=== PATIENT | female | born 1965 | race Caucasian/White ===

== ENCOUNTER 2020-06-26 08:52 | Outpatient (CLI) | payer OTHER, SELFPAY | END 2020-06-26 08:53 | disposition home or self-care (01) | LOC: ANHSURGERY 08:55 | PROVIDERS: PCP Family Medicine; Visit Provider Obstetrics & Gynecology Gynecology | DX: N95.0 Postmenopausal bleeding (principal) | CPT/HCPCS: 36415; 86850; 86900; 86901 ==

== ENCOUNTER 2020-06-30 01:22 | Outpatient (CLI) | payer OTHER, SELFPAY ==
[2020-06-30 16:30] LABS: SARS-CoV-2 RNA PCR Negative
== END 2020-06-30 01:23 | disposition home or self-care (01) ==
LOC: ANHCOVIDDT 01:23
PROVIDERS: PCP Family Medicine; Visit Provider Obstetrics & Gynecology Gynecology
DX: Z01.812 Encounter for preprocedural laboratory examination (principal); Z20.828 Contact with and (suspected) exposure to other viral communicable diseases
CPT/HCPCS: 87635; C9803; U0003

== ENCOUNTER 2020-07-03 02:23 | Day surgery (SDC) | payer OTHER, SELFPAY ==
[2020-06-19 11:08] VITALS: BMI 26.6
[2020-07-03] VITALS (28 sets, daily range): BP systolic 102–122; BP diastolic 61–79; PULSE 35–126; RESP 12–20; TEMP 36.2–37.2; O2SAT 93–100
--- NOTE | 2020-07-03 | ECG_ITS ---
Measurements Intervals [place] Rate: 75 P: 75 [place]: 180 QRS: 66 QRSD: 97 T: 61 QT: 382 QTc: 428 Interpretive Statements SINUS RHYTHM WITH MARKED SINUS ARRHYTHMIA POSSIBLE LEFT ATRIAL ENLARGEMENT INCOMPLETE RIGHT BUNDLE BRANCH BLOCK BORDERLINE ECG Electronically Signed On 07-03-2020 19:01:55 CDT by Hima Spears D.O.
--- NOTE | 2020-07-03 07:48 | P.HP_ITS ---
H&P: HPI History of Present Illness Date/Time: 07/03/20 07:48 Chief complaint: Post Menopausal Bleeding Narrative: Zita Orozco is a 54 year old female with postmenopausal bleeding. Patient had hysteroscopy with EMB that showed proliferative endometrium. Patient unable to use hormones due to history of breast cancer. Options were reviewed and patient has decided to proceed with hysterectomy. In addition, she would like to have BSO due to history of breast cancer. Reviewed route of procedure with prior csection and prior and plan laparoscopy to evaluate the pelvis. If appropriate, will proceed with TVH-BSO but if needed with use laparoscopic assistance. Risks of infection, bleeding, injury to internal organs, DVT, and general anesthesia discussed. Post of expectations reviewed. Patient questions answered and she agrees to proceed. [facility] Past Medical History Medical History (Updated 07/03/20 @ 08:15 by Naima Bowen MD) Body mass index (bmi) 25.0-25.9, adult (12/11/16) Bunion of great toe of left foot (~1996) delivery delivered Encounter for preventive measure History of breast cancer in female (~2012) Insomnia Malignant neoplasm of unspecified site of unspecified female breast (~2012) (normal spontaneous vaginal delivery) Postmenopausal vaginal bleeding Postmenopause atrophic vaginitis (~2014) Seasonal allergies Status post hysteroscopy Urge incontinence (~2018) Vitamin D deficiency, unspecified (~2015) Surgical History Surgical History History of lumpectomy of left breast (~2012) Social History Social History Smoking status: Never smoker Alcohol intake: current Drinks per week: 2 Spiritual care concerns: No Meds Home Medications and Allergies Home Medications Medication Instructions Recorded Confirmed Type cholecalciferol (vitamin D3) 125 5,000 unit PO DAILY 08/12/19 06/19/20 History mcg (5,000 unit) capsule hydroxyzine HCl 10 mg tablet 10 mg PO .bedtime PRN #90 tablet 12/13/19 06/19/20 Rx calcium carbonate 500 mg calcium 500 mg PO DAILY 01/06/20 06/19/20 History (1,250 mg) tablet loratadine 10 mg tablet 10 mg PO DAILY 01/06/20 06/19/20 History bupropion HCl 150 mg 24 hr tablet, 150 mg PO BID #180 tablet 06/01/20 06/19/20 Rx extended release multivitamin 1 tablet PO DAILY 06/19/20 06/19/20 History Allergies Allergy/AdvReac Type Severity Reaction Status Date / Time No Known Allergies Allergy Verified 06/19/20 11:10 Exam Const: General: no acute distress Resp: Auscultation: clear to auscultation bilaterally Cardio: Rate: regular rate Rhythm: regular rhythm : External Female Exam: normal external appearance Speculum Exam - Vagina: normal appearance of the vagina Speculum Exam - Cervix: normal appearance of the cervix Bimanual exam- vagina & uterus: normal bimanual exam Bimanual Exam- Adnexa, other: normal adnexae Assessment and Plan Assessment and plan (1) Postmenopausal vaginal bleeding: Code(s): N95.0 - Postmenopausal bleeding Status: Acute Assessment and Plan: with proliferative endometrium Plan to proceed with hysterectomy Plan laparoscopic assisted vaginal hysterectomy with BSO
--- NOTE | 2020-07-03 07:48 | WPDHPUPDATE1 ---
History and Physical Update Update Date/Time: 07/03/20 07:48 History and Physical has been reviewed, including an updated exam of the patient. There are NO changes in the patient's condition. Risks, benefits, and alternatives have been discussed and questions answered. Patient agrees to proceed with procedure.
--- NOTE | 2020-07-03 08:04 | P.PNAN_ITS ---
Anes - Initial Pre Proc Eval Procedure: Operation Date: 07/03/20 10:00 Proposed Procedures p Laparoscopic Assisted Vaginal Hysterectomy With Bilateral Salpingo- Oophorectomy - Naima Bowen MD Date/Time: 07/03/20 08:04 Surgeon: Naima Bowen MD Pre Op Diagnosis: Post Menopausal Bleeding Patient Data Age: 54 Gender: F Height: 1.7 m Weight: 77.11 kg Allergies Allergy/AdvReac Type Severity Reaction Status Date / Time No Known Allergies Allergy Verified 06/19/20 11:10 Home Medications Medication Instructions Recorded Confirmed Type cholecalciferol (vitamin D3) 125 5,000 unit PO DAILY 08/12/19 07/03/20 History mcg (5,000 unit) capsule hydroxyzine HCl 10 mg tablet 10 mg PO .bedtime PRN #90 tablet 12/13/19 07/03/20 Rx calcium carbonate 500 mg calcium 500 mg PO DAILY 01/06/20 07/03/20 History (1,250 mg) tablet loratadine 10 mg tablet 10 mg PO DAILY 01/06/20 07/03/20 History bupropion HCl 150 mg 24 hr tablet, 150 mg PO BID #180 tablet 06/01/20 07/03/20 Rx extended release multivitamin 1 tablet PO DAILY 06/19/20 07/03/20 History Patient hx anesthesia problems: none Family hx anesthesia problems: none PMFSH Past Medical History Medical History (Updated 07/03/20 @ 08:15 by Naima Bowen MD) Body mass index (bmi) 25.0-25.9, adult (12/11/16) Bunion of great toe of left foot (~1996) delivery delivered Encounter for preventive measure History of breast cancer in female (~2012) Insomnia Malignant neoplasm of unspecified site of unspecified female breast (~2012) (normal spontaneous vaginal delivery) Postmenopausal vaginal bleeding Postmenopause atrophic vaginitis (~2014) Seasonal allergies Status post hysteroscopy Urge incontinence (~2018) Vitamin D deficiency, unspecified (~2015) Surgical History Surgical History History of lumpectomy of left breast (~2012) Social History Social History Smoking status: Never smoker Alcohol intake: current Drinks per week: 2 Spiritual care concerns: No Anes - Eval Final PreProcedure Day of Procedure 07/03/20 08:04 Patient weight: overweight Heart: regular rate and rhythm Lungs: clear to auscultation and normal air movement Airway: Mallampati scale class II Neurological: alert and oriented Last oral intake: >/= 8 hours ASA classification: II Emergent: no Anesthetic plan: proceed Anesthesia type and monitoring: general ETT and standard monitoring Informed Consent: The patient's anesthetic plan and its attendant risks and benefits were discussed with the patient/family/POA. Questions were solicited and answers provided to the satisfaction of the patient/family/POA.
[2020-07-03] MEDS: ACETAMINOPHEN 500 MG TABLET 1000 MG PO (09:07)
[2020-07-03] MEDS: LACTATED RINGERS 1,000 ML 30 ML IV CONT ×2 (09:30→12:17)
[2020-07-03] MEDS: KETOROLAC 15 MG/ML VIAL (*BKC) IV PUSH (09:37)
[2020-07-03] MEDS: ceFAZolin 2 GM/D5W 50 ML 2 GM/50 ML BAG IVPB (10:11)
[2020-07-03] MEDS: LIDO 1%/EPINEPHRINE 1:100,000 20 ML VIAL INFILTRATE (10:49)
--- NOTE | 2020-07-03 12:05 | PM.PROC ---
Procedure Note - Detailed Date of procedure: 07/03/20 Pre-op diagnosis: Post Menopausal Bleeding Post-op diagnosis: same Procedure performed: LAVH-BSO Description of procedure: The patient is taken to the operating room and placed under general anesthesia in the dorsal lithotomy position. Oliveira catheter is placed. Randlett speculum was placed in the vagina cervix is grasped on the anterior lip with a tenaculum and an acorn manipulator is placed. Attention is then turned to the abdomen where a vertical skin incision is made at the base of the umbilicus. The abdomen is tented and the Veress needle is placed. Opening patient pressure was 6mmHg and water drop test is normal. Pneumoperitoneum is obtained to a patient pressure of 15. Veress needle is removed and a 5mm optic view trocar was placed and intra-abdominal placement is confirmed with the laparoscope. 5mm trocar is placed 2cm above the symphysis pubis under direct visualization. The blunt probe was used to investigate the pelvis and the right tube is noted to be adherent to the pelvic sidewall using blunt dissection and Mersilene scissors the tube was dissected off the sidewall. Attention is then turned to the the vagina, the acorn manipulator is removed the short weighted speculum is placed the Filipe retractors placed anteriorly. The vaginal mucosa surrounding the cervix was injected with 1% lidocaine with epinephrine. The scalpel was then used to incise the vaginal mucosa circumferentially around the cervix. The vaginal mucosa was dissected off anteriorly and the peritoneum entered the Filipe retractors replaced. The posterior vaginal mucosa was dissected off using sharp and blunt dissection and the peritoneum entered. The long weighted speculum is placed intraperitoneally. The uterosacral and cardinal ligaments were serially clamped, transected, and suture ligated with 0 Vicryl. These were tagged for future use. The uterine vessels are clamped, transected, and suture-ligated with 0 Vicryl. The fundus is grasped posteriorly through the cul-de-sac with piercing towel clamps. The fundus was delivered through the cul-de-sac. The utero-ovarian ligaments are clamped, transected, and suture ligated with 0 Vicryl. These were tagged for future use. The left tube is grasped with a Minerva and a portion of the left ovary is grasped as well the entire ovary did not come down the portion that was visible was clamped transected and suture ligated with 0 Vicryl. The right tube is grasped and pulled down. But the ovary did not come to the surgical field. The tube was cross clamped transected and suture ligated with 0 Vicryl. The long weighted speculum was removed and replaced with the short weighted speculum with the perineum was grasped anteriorly and posteriorly with peons. The perineum was closed using 0 Ethibond in a pursestring fashion. The previously tagged uterosacral and cardinal ligaments were included in this closure. The vaginal cuff is then closed using 0 Vicryl in a running lock stitch. A sponge stick is placed vaginally and attention is returned to the abdomen. Pneumoperitoneum was again obtained. The left ovary and remaining tube were grasped with a grasper and 12mm port was placed in the left lower quadrant under direct visualization. The Endo-MARY stapler was used to excise the tube and ovary using 2 loads. The remainder of the right ovary is grasped with a grasper. And excised using the Endo-MARY stapler with 1 load. Good hemostasis of all pedicles is noted. the cone fascial closure device was used to close the fascia of the 12mm port using 0 Vicryl. Instruments are removed and pneumoperitoneum is reduced. Skin incisions are closed using 4 0 nylon in an interrupted fashion and sterile bandages are applied. Vaginal packing is placed coated with Premarin cream. Sponge instrument and needle counts are correct per the OR staff. Patient is awakened from anesthesia and taken to recovery in stable c
--- NOTE | 2020-07-03 12:17 | PM.DS ---
DS: Admitting Diagnosis Admitting Diagnosis Admitting Diagnosis: Post Menopausal Bleeding DS: Summary Hospital Course Reason for hospitalization: post op care Hospital Course: episode of post op bradycardia, EKG and hospitalist consulted stable cardiac status with no episodes overnight on telemetry tolerating diet,voiding, and ambulating by time of dc home Status at Discharge Functional status at discharge: independent ambulation Overall status at discharge: patient is progressing back to baseline Time Spent with Patient Time attestation: Total time spent providing and/or coordinating discharge services: DS: Data Data Completed and Pending Pending studies at discharge: Pending at discharge 07/03/20 11:53 Surgical [PTH] Routine Discharge Plan Discharge Consulting providers: Naima Bowen Patient Disposition: Home, Self-Care Discharge Instructions: pelvic rest, may drive after 2 weeks, no lifting > 10 lbs, may shower Stand Alone Forms: General Discharge Instructions Follow-up/Referrals: Naima Bowen MD [Physician] - 1 Week Discharge Medications: New hydrocodone-acetaminophen 5-325 mg Tablet 1 tab PO Q3H PRN (Reason: Pain Rated 5 Or Less) Qty: 15 RF: 0 Continued calcium carbonate 500 mg calcium (1,250 mg) tablet 500 mg PO DAILY RF: 0 loratadine [Claritin] 10 mg tablet 10 mg PO DAILY RF: 0 cholecalciferol (vitamin D3) 5,000 unit capsule 5,000 unit PO DAILY RF: 0 multivitamin Tablet 1 tablet PO DAILY RF: 0 hydroxyzine HCl 10 mg tablet 10 mg PO .bedtime PRN (Reason: sleep) Qty: 90 RF: 0 bupropion HCl [Wellbutrin XL] 150 mg tablet extended release 24 hr 150 mg PO BID Qty: 180 RF: 1 Primary Care Provider: Angélica,Lauren Woodard Attending physician on admission: Naima Bowen
[2020-07-03] MEDS: fentaNYL CITRATE INJ (*CRX) 100 MCG/2 ML VIAL 25 MCG IV PUSH ×8 (12:39→13:22)
[2020-07-03] MEDS: DEXTROSE 5%/LACTATED RINGERS 1,000 ML 125 ML IV CONT (14:05)
--- NOTE | 2020-07-03 15:04 | OBPPTRN ---
Patient transferred to room #279 via Bed. Support person present. Oriented to unit, room, information board, and security measures. Patient verbalizes understanding.
[2020-07-03] MEDS: KETOROLAC 30 MG/ML VIAL (*BKC) IV PUSH ×2 (15:42→23:24)
--- NOTE | 2020-07-03 16:38 | PC.NURSE ---
1638 Tech here to do EKG.
--- NOTE | 2020-07-03 19:00 | WPDCN ---
Assessment and Plan Assessment and plan (1) Sinus arrhythmia seen on electrocardiogram: Code(s): I49.8 - Other specified cardiac arrhythmias Status: Acute (2) Postoperative nausea and vomiting: Code(s): R11.2 - Nausea with vomiting, unspecified; Z98.890 - Other specified postprocedural states Status: Acute (3) Depression with anxiety: Code(s): F41.8 - Other specified anxiety disorders Status: Acute (4) Postmenopausal vaginal bleeding: Code(s): N95.0 - Postmenopausal bleeding Status: Acute Additional Plan Hospitalist service has been consulted for further evaluation of episodes of reported bradycardia and tachycardia. She has been asymptomatic with these, and the 25 minutes or so I was in the room with her her heart rate ranged between 87 and 109. She appears dehydrated and she may very well be somewhat tachycardic due to that. It sounds as though her resting heart rate is somewhere around 60 and it may not be unusual for her heart rate did dip into the 30s and 40s while resting. Conversely, I suppose she could have increased vagal tone due to pain causing occasional bradycardia, which again was not noted at the time of my evaluation. I think it would be prudent to transfer her to a monitored bed so we can watch her heart rate overnight. If she indeed has evidence of tachy/teetee will need cardiology consult. Will check TSH, CBC, and electrolytes this evening for further evaluation. Continue IV fluid rehydration antiemetics as needed. Thank you for allowing us to participate in this patient's care. Please do not hesitate to contact us with any questions. We will follow with you. Supervising physician for this medical consultation is Dr. Morgan Bennett. This document was completed by using [employer] Fluency Direct speech recognition software, therefore respiratory therapist variances may occur. Despite proofreading, typographical errors may also occur. HPI Data of Consult Date/Time: 07/03/20 19:00 Requesting Physician: Naima Bowen MD Primary Care Provider: Lauren Lindsay, Consult Narrative Narrative: Zita Orozco is a very pleasant 54-year-old female with history of breast cancer, depression, anxiety whom the hospitalist service has been consulted for further evaluation of reported periods of tachycardia and bradycardia. She developed post-menopausal bleeding and underwent recent hysteroscopy with endometrial biopsy showing proliferative endometrium. Due to her history of breast cancer she was not a candidate for hormones and presented today for laparoscopic assisted vaginal hysterectomy with bilateral salpingo-oophorectomy per Dr. Bowen. Her surgery was performed under general anesthesia with no immediate complications documented an estimated blood loss of 50 mL. On routine vital checks starting at approximately 14:00, she was noted to have periods of bradycardia as low as 35 and periods of tachycardia up to 126 beats per minute. Nurse reports the confirmation of such on both palpation and auscultation. At the time of my evaluation, she is complaining of increase in pain, rated 8/10 and described as a severe contraction like pain, which has been intermittent since postop. Additionally she has had nausea and dry heaves, and has not had anything to eat or drink since last evening. With further questioning, she is completely asymptomatic with these reported fluctuations in her heart rate. She is in pretty good shape and tends to walk a lot, and believes her resting heart rate is somewhere around 60. She has no prior history of bradycardia or tachycardia to her knowledge. Again, she has no symptoms of such and she specifically denies palpitations, irregular heartbeat, racing heart, fluttering, and chest discomfort. She has not had shortness of breath, vertigo, lightheadedness, syncope, or near syncope. She has no known histo
[2020-07-03] MEDS: HYDROcodone/acetaminophen (*CRX) 10-325 MG TABLET 1 TAB PO (19:21)
[2020-07-03] MEDS: ONDANSETRON INJ 4 MG/2 ML VIAL IV PUSH (19:36)
--- NOTE | 2020-07-03 21:24 | PC.NURSE ---
1915 Kayy DURHAM at bedside to examine patient.
--- NOTE | 2020-07-03 21:29 | PC.NURSE ---
2102 Transferred to Room 200 per bed.
[2020-07-03] MEDS: buPROPion HCL XL (24 HR) 150 MG TABCR PO (21:40)
[2020-07-03 21:43] LABS: Hematocrit 38.2 % (37.0-47.0); Hemoglobin 12.7 g/dL (12.0-15.0); Mean Corpuscular HGB Conc 33.2 g/dl (32-36); Mean Corpuscular Hemoglobin 30.2 pg (26-34); Mean Platelet Volume 12.5 fl (7.4-10.4); Platelet Count Result 187 k/mm3 (150-375); Red Cell Distribution Width 13.4 % (11.5-14.5); White Blood Count 13.1 K/mm3 (4.5-10.0)
[2020-07-03] MEDS: SODIUM CHLORIDE 0.9% IV 1,000 ML 999 ML IV CONT (21:45)
[2020-07-03 21:55] LABS: Alanine Aminotransferase 17 U/L (4-35); Albumin Level 3.8 g/dL (3.5-5.1); Alkaline Phosphatase 66 U/L (38-126); Anion Gap 4 mmol/L (8-16); Aspartate Amino Transferase 21 U/L (14-36); Bilirubin,Total 0.3 mg/dL (0.2-1.3); Blood Urea Nitrogen 12 mg/dL (7-17); Calcium 8.9 mg/dL (8.4-10.2); Carbon Dioxide 28 mmol/L (22-30); Chloride 103 mmol/L (98-107); Estimated CRCL calculation 78 ml/min; Estimated Glomerular Filt Rate > 60; Glucose 137 mg/dL (65-105); Magnesium 1.8 mg/dL (1.6-2.3); Phosphorus 3.1 mg/dL (2.5-4.5); Potassium 4.2 mmol/L (3.4-5.0); Sodium 135 mmol/L (137-145)
--- NOTE | 2020-07-03 22:20 | ADMGEN ---
This patient, Zita Orozco, was admitted to IMU Room 200-01 @ 2115 from OB 276. Patient/family oriented to hospital policies and general routines including ID bracelet, bed and alarms, visiting hours, pain management, procedures, bathroom and other care routines, personal items, smoking policy, room service/diet, and visiting hours. Valuables list has been completed. Information on how to activate the Rapid Response Team has been discussed. Patient/Family are encouraged to report perceived risks to care and to ask questions if they do not understand what they are told or what they should do.
[2020-07-03 22:34] LABS: Thyroid Stimulating Hormone Reflex 0.653 uIU/mL (0.465-4.68)
[2020-07-03] MEDS: SODIUM CHLORIDE 0.9% IV 1,000 ML 100 ML IV CONT (23:14)
[2020-07-04] VITALS: PULSE 79
[2020-07-04 02:00] VITALS: PULSE 73
[2020-07-04 04:00] VITALS: BP 115/67; PULSE 77; PULSE 91; RESP 18; TEMP 36.6; O2SAT 98
[2020-07-04 04:50] LABS: Basophils Percent Auto 0.1 % (0.2-1.2); Hematocrit 35.6 % (37.0-47.0); Hemoglobin 11.8 g/dL (12.0-15.0); Immature Granulocyte Absolute 0.06 K/mm3 (0.00-0.031); Immature Granulocyte Percent A 0.5 % (0-0.5); Lymphocytes Absolute Auto 1.49 K/mm3 (0.9-3.2); Lymphocytes Percent Auto 12.2 % (18.3-44.2); Mean Corpuscular HGB Conc 33.1 g/dl (32-36); Mean Corpuscular Hemoglobin 29.9 pg (26-34); Mean Corpuscular Volume 90.1 fl (80-100); Mean Platelet Volume 12.3 fl (7.4-10.4); Monocytes Absolute Auto 1.1 K/mm3 (0.1-0.6); Monocytes Percent Auto 8.7 % (2.6-8.5); Neutrophils Absolute Auto 9.6 K/mm3 (1.3-6.7); Neutrophils Percent Auto 78.5 % (45.5-73.1); Platelet Count Result 183 k/mm3 (150-375); Red Blood Count 3.95 M/mm3 (4.2-5.4); Red Cell Distribution Width 13.4 % (11.5-14.5); White Blood Count 12.2 K/mm3 (4.5-10.0)
[2020-07-04 05:07] LABS: Anion Gap 4 mmol/L (8-16); Blood Urea Nitrogen 8 mg/dL (7-17); Calcium 8.4 mg/dL (8.4-10.2); Carbon Dioxide 26 mmol/L (22-30); Chloride 108 mmol/L (98-107); Estimated CRCL calculation 78 ml/min; Estimated Glomerular Filt Rate > 60; Glucose 97 mg/dL (65-105); Sodium 138 mmol/L (137-145)
[2020-07-04] MEDS: KETOROLAC 30 MG/ML VIAL (*BKC) IV PUSH (05:31)
[2020-07-04 06:00] VITALS: PULSE 82
--- NOTE | 2020-07-04 07:36 | P.PNAN_ITS ---
Anes - Prog Note Post-Op Date/Time: 07/04/20 07:36 Cardiovascular status: normal Respiratory status: normal Airway patency: baseline Mental status: baseline Post-Op hydration status: normal Vital Signs: Last Vital Signs Temp 36.6 C 07/04/20 04:00 Pulse 82 07/04/20 06:00 Resp 18 07/04/20 04:00 BP 115/67 07/04/20 04:00 Pulse Ox 98 07/04/20 04:00 Pain Score (VAS): 4 I/O: Intake & Output 07/03/20 07/03/20 07/04/20 15:59 23:59 07:59 Intake Total 610 Output Total 554 814 9841 Balance 455 125 1255 Laboratory Tests 07/04/20 04:27 07/04/20 04:27 07/03/20 07/03/20 07/03/20 21:36 21:36 21:36 WBC 13.1 H RBC 4.20 Hgb 12.7 Hct 38.2 MCV 91.0 MCH 30.2 MCHC 33.2 RDW 13.4 Plt Count 187 MPV 12.5 H Immature Gran % (Auto) Neut % (Auto) Lymph % (Auto) Mclennan % (Auto) Eos % (Auto) Baso % (Auto) Lymph # (Auto) Mclennan # (Auto) Eos # (Auto) Baso # (Auto) Abs Immat Gran (auto) Absolute Neuts (auto) Absolute Nucleated RBC Nucleated RBC % Sodium 135 L Potassium 4.2 Chloride 103 Carbon Dioxide 28 Anion Gap 4 L BUN 12 Creatinine 0.70 Estim Creat Clear Calc 78 Estimated GFR > 60 Glucose 137 H Calcium 8.9 Phosphorus 3.1 Magnesium 1.8 Total Bilirubin 0.3 AST 21 ALT 17 Alkaline Phosphatase 66 Total Protein 6.0 L Albumin 3.8 TSH (Reflex) 0.653 07/04/20 07/04/20 04:27 04:27 WBC 12.2 H RBC 3.95 L Hgb 11.8 L Hct 35.6 L MCV 90.1 MCH 29.9 MCHC 33.1 RDW 13.4 Plt Count 183 MPV 12.3 H Immature Gran % (Auto) 0.5 Neut % (Auto) 78.5 H Lymph % (Auto) 12.2 L Mclennan % (Auto) 8.7 H Eos % (Auto) 0.0 Baso % (Auto) 0.1 L Lymph # (Auto) 1.49 Mclennan # (Auto) 1.1 H Eos # (Auto) 0.0 Baso # (Auto) 0.0 Abs Immat Gran (auto) 0.06 H Absolute Neuts (auto) 9.6 H Absolute Nucleated RBC 0.0 Nucleated RBC % 0.0 Sodium 138 Potassium 4.0 Chloride 108 H Carbon Dioxide 26 Anion Gap 4 L BUN 8 Creatinine 0.70 Estim Creat Clear Calc 78 Estimated GFR > 60 Glucose 97 Calcium 8.4 Phosphorus Magnesium Total Bilirubin AST ALT Alkaline Phosphatase Total Protein Albumin TSH (Reflex) Post-procedural complaints: none Patient Feedback: Patient satisfied with anesthetic care.
--- NOTE | 2020-07-04 07:47 | PM.GYNPNOP ---
PASTRY CHEF - A/P Assessment and plan (1) Status post laparoscopic assisted vaginal hysterectomy (LAVH): Code(s): Z90.710 - Acquired absence of both cervix and uterus Status: Acute Assessment and Plan: Will advance diet, ambulate, and remove packing and anand as ordered As long as hospitalist feels cardiac issue is stable, will dc home this afternoon Postoperative Procedures: Procedures Operation Date: 07/03/20 10:00 Actual Procedures Side Surgeon p Laparoscopic Assisted Vaginal Hysterectomy With Bilateral Salpingo-Oophorectomy Not Applicable Naima Bowen MD Time Spent With Patient Time: Total time spent is greater than 50% in coordination of care (as documented) at patient's floor/unit and/or counseling patient: Time with patient: less than 15 minutes PASTRY CHEF- PN:Subj Post-Op Subjective Date/time seen: 07/04/20 07:47 Interval history: post op had episodes of bradycardia so hospitalist was consulted patient moved to telemetry and appears to have done well without further episodes Subjective: patient reports feeling better, pain is well controlled and other (nausea improved this am) Exam GI: Inspection: non-distended Other: incision bandages c/d/i : Other: packing and anand not yet removed PASTRY CHEF - PN: Obj Data Vital Signs Vital Signs: Vital Signs - 24 hr 07/03/20 08:37 07/03/20 12:17 07/03/20 12:30 Temperature 98.2 F 97.5 F L Pulse Rate 81 68 76 Respiratory Rate 20 16 16 Blood Pressure 120/75 119/75 106/70 Pulse Oximetry 100 100 100 07/03/20 12:45 07/03/20 13:00 07/03/20 13:15 Temperature Pulse Rate 62 72 62 Respiratory Rate 12 12 12 Blood Pressure 108/70 106/70 107/70 Pulse Oximetry 100 94 93 07/03/20 13:30 07/03/20 13:41 07/03/20 14:00 Temperature 97.2 F L 97.2 F L Pulse Rate 71 62 49 L Respiratory Rate 12 16 Blood Pressure 103/65 110/68 106/69 Pulse Oximetry 94 100 100 07/03/20 14:01 07/03/20 14:04 07/03/20 14:06 Temperature Pulse Rate 35 L 121 H 48 L Respiratory Rate Blood Pressure Pulse Oximetry 07/03/20 14:13 07/03/20 14:15 07/03/20 14:32 Temperature Pulse Rate 121 H 73 46 L Respiratory Rate Blood Pressure 102/66 Pulse Oximetry 100 07/03/20 14:45 07/03/20 14:48 07/03/20 14:49 Temperature Pulse Rate 121 H 35 L 126 H Respiratory Rate Blood Pressure Pulse Oximetry 07/03/20 15:15 07/03/20 15:40 07/03/20 15:51 Temperature Pulse Rate 105 H 86 125 H Respiratory Rate 16 Blood Pressure 110/69 115/63 Pulse Oximetry 97 100 07/03/20 16:00 07/03/20 16:45 07/03/20 17:45 Temperature Pulse Rate 48 L 70 70 Respiratory Rate Blood Pressure 117/69 117/69 Pulse Oximetry 100 100 07/03/20 19:50 07/03/20 21:18 07/03/20 21:21 Temperature 98.9 F 97.9 F Pulse Rate 104 H 87 71 Respiratory Rate 16 20 Blood Pressure 122/79 120/75 Pulse Oximetry 98 98 07/03/20 23:15 07/04/20 00:00 07/04/20 02:00 Temperature 97.9 F Pulse Rate 82 79 73 Respiratory Rate 20 Blood Pressure 118/61 Pulse Oximetry 100 07/04/20 04:00 07/04/20 06:00 Temperature 97.8 F Pulse Rate 77 82 Respiratory Rate 18 Blood Pressure 115/67 Pulse Oximetry 98 Intake/Output Intake/Output: Intake & Output 07/01/20 07/02/20 07/03/20 07/04/20 23:59 23:59 23:59 23:59 Intake Total 610 Output Total 280 1250 Balance 330 -1250 Meds/Results Medications: Active Medications Generic Name Dose Route Start Last Admin Trade Name Freq PRN Reason Stop Dose Admin Hydrocodone Bitart/Acetaminophen 1 tab 07/03/20 13:30 [place] 5-325 Mg PO Q3H PRN Pain Rated 5 or Less Hydrocodone Bitart/Acetaminophen 1 tab 07/03/20 13:30 07/03/20 19:21 [place] 10-325 Mg PO 1 tab Q3H PRN Administration Pain Rated 6 or Greater Bupropion HCl 150 mg 07/03/20 21:00 07/03/20 21:40 Wellbutrin Xl (24 Hr) PO 150 mg Q12HR BEKAH Administration Hydroxyzine HCl 10 mg 07/03/20 13:30 Atarax
[2020-07-04 08:00] VITALS: BP 112/69; PULSE 80; RESP 14; TEMP 36.6; O2SAT 99
[2020-07-04 10:00] VITALS: PULSE 92
--- NOTE | 2020-07-04 16:20 | PM.IMCN ---
Assessment and Plan Assessment and plan (1) Sinus arrhythmia seen on electrocardiogram: Code(s): I49.8 - Other specified cardiac arrhythmias Status: Resolved Assessment and Plan: TSH, CBC, and electrolytes reviewed, telemetry reviewed. Pt stable for discharge by primary team. No cardiac history maybe she had some reaction to the anesthesia. Arrhythmia resolved after fluids (2) Postoperative nausea and vomiting: Code(s): R11.2 - Nausea with vomiting, unspecified; Z98.890 - Other specified postprocedural states Status: Resolved (3) Depression with anxiety: Code(s): F41.8 - Other specified anxiety disorders Status: Chronic (4) Postmenopausal vaginal bleeding: Code(s): N95.0 - Postmenopausal bleeding Status: Resolved Assessment and Plan: Sp hysterectomy Additional Plan HPI Data of Consult Consult date: 07/04/20 Requesting Physician: Naima Bowen MD Primary Care Provider: Kishore Gagnon MD Consult Narrative Narrative: Zita Orozco is a 54 year old female with history of breast cancer, depression, anxiety pt had hysterectomy yesterday had some tachycardia and bradycardia. So was transferred to IMU for observation and cardiac monitoring. Telemetry reviewed no teetee events or tachy event. Pt is currently at rate 90-100. Pt may be in some slight pain. Pt denies any chest pain, SOB or palpitations. TSH is NL. Labs essential unremarkable, mild anemia. Wcc slightly high ? stress response. No other symptoms expressed by patient. Review of Systems Review of Systems: All systems reviewed & are unremarkable except as noted in HPI and below Constitutional: Constitutional: Reports fatigue and Denies fever(s) Cardiovascular: Cardiovascular: Denies no additional cardiovascular complaints Respiratory: Respiratory: Denies no additional respiratory complaints Gastrointestinal: Comments: Sp hysterectomy Musculoskeletal: Musculoskeletal: Denies no additional musculoskeletal complaints Neurologic: Denies system reviewed and no additional complaints, except as documented Psychiatric: Psychiatric: Denies no additional psychiatric complaints PMFSH Past Medical History Medical History Bunion of great toe of left foot (~1996) Colon polyps Depression with anxiety Encounter for preventive measure History of breast cancer in female (~2012) Status post left breast lumpectomy, radiation, and tamoxifen therapy. Insomnia Postmenopausal vaginal bleeding Seasonal allergies Urge incontinence (~2018) Vitamin D deficiency, unspecified (~2015) Surgical History Surgical History delivery delivered History of lumpectomy of left breast (~2012) Status post hysteroscopy Family History Family History Mother Cerebrovascular accident Intracranial hemorrhage Social History Social History Social History: Surrogate decision maker: Mitchell Portereleuterio, spouse. Code status: Full code. Smoking status: Never smoker Alcohol intake: current Substance use: never Additional living arrangements comments: Resides in [place] with her . Additional occupation/education comments: [employer]. Spiritual care concerns: No Meds Home Medications and Allergies Home Medications Medication Instructions Recorded Confirmed Type cholecalciferol (vitamin D3) 125 5,000 unit PO DAILY 08/12/19 07/03/20 History mcg (5,000 unit) capsule hydroxyzine HCl 10 mg tablet 10 mg PO .bedtime PRN #90 tablet 12/13/19 07/03/20 Rx calcium carbonate 500 mg calcium 500 mg PO DAILY 01/06/20 07/03/20 History (1,250 mg) tablet loratadine 10 mg tablet 10 mg P
== END 2020-07-04 13:47 | disposition home or self-care (01) ==
LOC: ANHSURGERY 12:18 → ANHOB2 13:38 → ANHIMU 07-04 10:57
PROVIDERS: Physician Assistant; PCP Family Medicine; Visit Provider Obstetrics & Gynecology Gynecology
PROC: 0UT9FZZ Resection of Uterus, Via Natural or Artificial Opening With Percutaneous Endoscopic Assistance (ICD-10-PCS; CPT 58552; principal; 2020-07-03 10:00)
DX: N95.0 Postmenopausal bleeding (principal); N84.0 Polyp of corpus uteri; N80.0 Endometriosis of uterus; D25.9 Leiomyoma of uterus, unspecified; I49.8 Other specified cardiac arrhythmias; R11.2 Nausea with vomiting, unspecified; F41.8 Other specified anxiety disorders; E55.9 Vitamin D deficiency, unspecified; Z85.3 Personal history of malignant neoplasm of breast
CPT/HCPCS: 58552; 36415; 80048; 80053; 83735; 84100; 84443; 85025; 85027; 88307; 93005; 99199; A9270; J0690; J1100; J1170; J1885; J2250; J2405; J2704; J2710; J3010; J7030; J7120; J7121

== ENCOUNTER → 2022-04-24 10:32 | Outpatient (CLI) | payer OTHER, SELFPAY ==
--- NOTE | ~2022-04-24 | DEXA_ITS ---
Bone Density Report Name: NELSON ESPINAL Age: 56 Sex: Female Ethnicity: White Date of : 1965 Indication: postmenopausal; screening for osteoporosis; height loss; hysterectomy; Referring Provider: Amrita, Judie Study: Bone densitometry was performed. Exam Date: April 24, 2022 Accession number: [id number] Bone Density: Region BMD T-score Z-score Classification AP Spine (L1-L4) 1.124 0.7 1.8 Normal Femoral Neck (Left) 0.797 -0.5 0.6 Normal Total Hip (Left) 0.893 -0.4 0.3 Normal Femoral Neck (Right) 0.804 -0.4 0.7 Normal Total Hip (Right) 0.899 -0.4 0.4 Normal Total Hip Mean 0.896 -0.4 0.4 Normal World Health Organization criteria for BMD impression classify patients as: Normal (T-score at or above -1.0), Osteopenia (T-score between -1.0 and -2.5), or Osteoporosis (T-score at or below -2.5). 10-year Fracture Risk: FRAX not reported because: All T-scores for Spine Total, Hip Total, Femoral Neck at or above -1.0 Previous Exams: Region Exam Age BMD T-score BMD Change BMD Change Date g/cm2 vs Baseline vs Previous AP Spine(L1-L4) 04/24/2022 56 1.124 0.7 -0.013 -0.013 10/08/2017 52 1.136 0.8 Total Hip(Left) 04/24/2022 56 0.893 -0.4 -0.073* -0.073* 10/08/2017 52 0.966 0.2 Total Hip(Right) 04/24/2022 56 0.899 -0.4 -0.107* -0.107* 10/08/2017 52 1.007 0.5 *Denotes significance at 95% confidence level, LSC for AP Spine = 0.022 g/cm2, LSC for Total Hip = 0.027 g/cm2 Clinical Information Provided by Patient: Has used the following medications: Vitamin D, Calcium, MTV, Hx of Tamoxifen from [id number] Has the following medical conditions: Hysterectomy, Hx of left breast ca lumpectomy in 2012 with radiation Patient maximum height was 66.5 Menopause Age: 50 No regular weight bearing exercise Drinks caffeinated beverages Onset of menses at age 13 Number of children 2 Impression: The patient has normal bone mass. The BMD for the Total Hip(Left) decreased, changing by -0.073 since the last DXA exam. The BMD for the Total Hip(Right) decreased, changing by -0.107 since the last DXA exam. Discussion: BONE DENSITY IS ABOVE THE MINIMUM DESIRABLE LEVEL AT ALL SKELETAL SITES TESTED. This patient?s bone mineral density is above the minimum desirable level (T-score -1.0 or better) at all sites measured. The patient should follow a healthful lifestyle (good nutrition with adequate c
== END ==
PROVIDERS: PCP Nurse Practitioner Family; Visit Provider Nurse Practitioner
DX: Z78.0 Asymptomatic menopausal state (principal)
CPT/HCPCS: 77080

== ENCOUNTER 2022-05-06 00:04 | Day surgery (SDC) | payer OTHER, SELFPAY ==
[2022-04-15 14:29] VITALS: BMI 26.6
--- NOTE | 2022-05-03 11:11 | SUR.PREOP ---
Left voicemail regarding Magnesium citrate recall.
--- NOTE | 2022-05-05 17:25 | P.HP_ITS ---
History of Present Illness History of Present Illness Consent: Risks, benefits, and alternatives have been discussed and questions answered. Patient agrees to proceed with procedure. Chief complaint: neoplasm screening Narrative: Zita Orozco is a 56 year old female referred for colon caancer screening . She had an adenomatous polyp removed about 5 years ago. Review of Systems Review of Systems: All systems reviewed & are unremarkable except as noted in HPI and below PMFSH Past Medical History Medical History Colon polyps Depression with anxiety History of breast cancer in female (~2012) Status post left breast lumpectomy, radiation, and tamoxifen therapy. History of left breast cancer (~2012) Insomnia Seasonal allergies Vitamin D deficiency, unspecified (~2015) Surgical History Surgical History delivery delivered H/O: hysterectomy (~07/03/20) History of bunionectomy of left great toe (~09/2021) History of lumpectomy of left breast (~2012) Status post hysteroscopy (~06/2020) Family History Family History Mother Cerebrovascular accident Intracranial hemorrhage Social History Social History Social History: Surrogate decision maker: Mitchell Orozco, spouse. Code status: Full code. Smoking status: Never smoker Alcohol intake: current Drinks per week: 3 Substance use: never Substance use type: does not use Living arrangements: with family Additional living arrangements comments: Resides in [place] with her . 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 Spiritual care concerns: No Meds Home Medications and Allergies Home Medications Medication Instructions Recorded Confirmed Type cholecalciferol (vitamin D3) 125 5,000 unit PO DAILY 08/12/19 05/06/22 History mcg (5,000 unit) capsule multivitamin 1 tablet PO DAILY 06/19/20 05/06/22 History calcium carbonate 600 mg calcium 600 mg PO DAILY 02/21/22 05/06/22 History (1,500 mg) tablet (Calcium) hydroxyzine HCl 25 mg tablet See Rx Instructions PO QHS PRN 02/21/22 05/06/22 Rx sleep #30 tabs loratadine 10 mg tablet (Claritin) 10 mg PO DAILY PRN Allergy Symptoms 02/21/22 05/06/22 History bupropion HCl 300 mg 24 hr tablet, 300 mg PO QAM #90 tabs 02/26/22 05/06/22 Rx extended release Allergies Allergy/AdvReac Type Severity Reaction Status Date / Time No Known Allergies Allergy Verified 05/06/22 06:48 Exam Resp: Auscultation: clear to auscultation bilaterally Cardio: Rate: regular rate Rhythm: regular rhythm GI: GI Palp: Yes Soft to palpation and No Tenderness to palpation present (GI) Assessment and Plan Assessment and plan (1) Colon cancer screening: Code(s): Z12.11 - Encounter for screening for malignant neoplasm of colon Status: Acute Assessment and Plan: Colonoscopy with possible biopsy or polypectomy or cautery or injection of substances.
[2022-05-06 06:49] VITALS: BP 105/75; PULSE 80; RESP 16; TEMP 36.8; O2SAT 100; BMI 27.1
[2022-05-06] MEDS: LACTATED RINGERS 1,000 ML 150 ML IV CONT (07:02)
--- NOTE | 2022-05-06 07:34 | WPDANESEPPF ---
Anes - Initial Pre Proc Eval Procedure: Operation Date: 05/06/22 08:00 Proposed Procedures p Screening Colonoscopy - Shon Duncan MD Date/Time: 05/06/22 07:34 Surgeon: Shon Duncan MD Pre Op Diagnosis: neoplasm screening Patient Data Age: 56 Gender: F Height: 1.7 m Weight: 78.4 kg Last Vital Signs Temp 98.3 F 05/06/22 06:49 Pulse 80 05/06/22 06:49 Resp 16 05/06/22 06:49 BP 105/75 05/06/22 06:49 Pulse Ox 100 05/06/22 06:49 O2 Del Method Room Air 05/06/22 06:49 Allergies Allergy/AdvReac Type Severity Reaction Status Date / Time No Known Allergies Allergy Verified 05/06/22 06:48 Home Medications Medication Instructions Recorded Confirmed Type cholecalciferol (vitamin D3) 125 5,000 unit PO DAILY 08/12/19 05/06/22 History mcg (5,000 unit) capsule multivitamin 1 tablet PO DAILY 06/19/20 05/06/22 History calcium carbonate 600 mg calcium 600 mg PO DAILY 02/21/22 05/06/22 History (1,500 mg) tablet (Calcium) hydroxyzine HCl 25 mg tablet See Rx Instructions PO QHS PRN 02/21/22 05/06/22 Rx sleep #30 tabs loratadine 10 mg tablet (Claritin) 10 mg PO DAILY PRN Allergy Symptoms 02/21/22 05/06/22 History bupropion HCl 300 mg 24 hr tablet, 300 mg PO QAM #90 tabs 02/26/22 05/06/22 Rx extended release Patient hx anesthesia problems: none Family hx anesthesia problems: none Results Review: All pre-operative results and documents have been reviewed as part of the pre-operative evaluation. [facility] Past Medical History Medical History Colon polyps Depression with anxiety History of breast cancer in female (~2012) Status post left breast lumpectomy, radiation, and tamoxifen therapy. History of left breast cancer (~2012) Insomnia Seasonal allergies Vitamin D deficiency, unspecified (~2015) Surgical History Surgical History delivery delivered H/O: hysterectomy (~07/03/20) History of bunionectomy of left great toe (~09/2021) History of lumpectomy of left breast (~2012) Status post hysteroscopy (~06/2020) Family History Family History Mother Cerebrovascular accident Intracranial hemorrhage Social History Social History Social History: Surrogate decision maker: Mitchell Orozco, spouse. Code status: Full code. Smoking status: Never smoker Alcohol intake: current Drinks per week: 3 Substance use: never Substance use type: does not use Living arrangements: with family Additional living arrangements comments: Resides in [place] with her . 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 Spiritual care concerns: No Anes - Eval Final PreProcedure Day of Procedure 05/06/22 07:34 Patient weight: normal Heart: regular rate and rhythm Lungs: clear to auscultation Airway: Mallampati scale class II Neurological: alert and oriented Last oral intake: >/= 8 hours ASA classification: II Emergent: no Anesthetic plan: proceed Anesthesia type and monitoring: general GIVS and standard monitoring Results Review: All pre-operative results and documents have been reviewed as part of the pre-operative evaluation. Informed Consent: The patient's anesthetic plan and its attendant risks and benefits were discussed with the patient/family/POA. Questions were solicited and answers provided to the satisfaction of the patient/family/POA.
[2022-05-06 08:15] VITALS: BP 89/58; PULSE 79; RESP 20; O2SAT 99
[2022-05-06 08:25] VITALS: BP 94/62; PULSE 74; RESP 13; O2SAT 100
[2022-05-06 08:35] VITALS: BP 102/69; PULSE 68; RESP 20; O2SAT 100
== END 2022-05-06 08:42 | disposition home or self-care (01) ==
PROVIDERS: PCP Nurse Practitioner Family; Visit Provider Internal Medicine Gastroenterology
PROC: 0DJD8ZZ Inspection of Lower Intestinal Tract, Via Natural or Artificial Opening Endoscopic (ICD-10-PCS; CPT 45378; principal; 2022-05-06 08:00)
DX: Z12.11 Encounter for screening for malignant neoplasm of colon (principal); Z86.010 Personal history of colon polyps; K64.8 Other hemorrhoids; F41.9 Anxiety disorder, unspecified; F32.A Depression, unspecified; E55.9 Vitamin D deficiency, unspecified; Z85.3 Personal history of malignant neoplasm of breast; G47.00 Insomnia, unspecified
CPT/HCPCS: 45378; J2704; J7120

== ENCOUNTER 2023-11-17 14:59 | Observation (INO) | payer OTHER, SELFPAY ==
[2023-11-17] VITALS (12 sets, daily range): BP systolic 99–132; BP diastolic 56–99; PULSE 60–133; RESP 12–20; TEMP 36.4–36.8; O2SAT 96–100; BMI 27.1
--- NOTE | ~2023-11-17 | XR_ITS ---
EXAMINATION: XR chest 2V DATE: 11/17/2023 15:31 INDICATION: Chest pain TECHNIQUE: PA and lateral views of the chest are obtained. COMPARISON: 05/26/2018 FINDINGS: The lungs are free of acute opacities. No pleural effusion or pneumothorax. The cardiomedia stinal silhouette is normal. There is moderate thoracic spondylosis. IMPRESSION: 1. No acute cardiopulmonary abnormality. Reviewed, dictated and finalized at location B. [facility]
--- NOTE | 2023-11-17 15:06 | ECG_ITS ---
Measurements Intervals [place] Rate: 118 P: TX: 0 QRS: 72 QRSD: 90 T: 30 QT: 355 QTc: 498 Interpretive Statements ATRIAL FLUTTER/TACHYCARDIA WITH RAPID VENTRICULAR RESPONSE MODERATE T-WAVE ABNORMALITY, CONSIDER INFERIOR ISCHEMIA [-0.1+ mV T WAVE IN II/aVF] ABNORMAL ECG COMPARED TO ECG 07/03/2020 16:56:45 ATRIAL FLUTTER NOW PRESENT Electronically Signed On 11-17-2023 18:34:41 PUBLISHING MANAGER by Westley Sow M.D.
[2023-11-17] MEDS: dilTIAZem HCl INJ 25 MG/5 ML VIAL 10 MG IV PUSH (15:51)
[2023-11-17 15:59] LABS: Basophils Percent Auto 0.4 % (0.2-1.2); Eosinophils Absolute Auto 0.1 K/mm3 (0-0.3); Eosinophils Percent Auto 1.1 % (0-4.4); Hematocrit 43.4 % (37.0-47.0); Hemoglobin 14.1 g/dL (12.0-15.0); Immature Granulocyte Absolute 0.01 K/mm3 (0.00-0.031); Immature Granulocyte Percent A 0.1 % (0-0.5); Lymphocytes Absolute Auto 1.65 K/mm3 (0.9-3.2); Lymphocytes Percent Auto 23.2 % (18.3-44.2); Mean Corpuscular HGB Conc 32.5 g/dl (32-36); Mean Corpuscular Hemoglobin 29.6 pg (26-34); Mean Corpuscular Volume 91.2 fl (80-100); Mean Platelet Volume 12.7 fl (7.4-10.4); Monocytes Absolute Auto 0.7 K/mm3 (0.1-0.6); Monocytes Percent Auto 10.4 % (2.6-8.5); Neutrophils Absolute Auto 4.6 K/mm3 (1.3-6.7); Neutrophils Percent Auto 64.8 % (45.5-73.1); Platelet Count Result 219 k/mm3 (150-375); Red Blood Count 4.76 M/mm3 (4.2-5.4); Red Cell Distribution Width 13.8 % (11.5-14.5); White Blood Count 7.1 K/mm3 (4.5-10.0)
[2023-11-17 16:10] LABS: Alanine Aminotransferase 26 U/L (6-35); Albumin Level 4.7 g/dL (3.5-5.1); Alkaline Phosphatase 91 U/L (38-126); Anion Gap 7 mmol/L (8-16); Aspartate Amino Transferase 27 U/L (14-36); Bilirubin,Total 0.5 mg/dL (0.2-1.3); Blood Urea Nitrogen 17 mg/dL (7-17); Calcium 9.8 mg/dL (8.4-10.2); Carbon Dioxide 27 mmol/L (22-30); Chloride 106 mmol/L (98-107); Estimated CRCL calculation 66 ml/min; Estimated Glomerular Filt Rate > 60; Glucose 87 mg/dL (65-110); Magnesium 2.1 mg/dL (1.6-2.3); Potassium 3.8 mmol/L (3.4-5.0); Sodium 140 mmol/L (137-145)
[2023-11-17 16:20] LABS: NT Pro B Type Natriuretic Pept 979 pg/mL (19.9-100); Troponin I < 0.012 ng/mL (0.000-0.034)
--- NOTE | 2023-11-17 16:27 | ED.GENADULT ---
HPI - General Adult General Chief complaint: Recheck/Abnormal Lab/Rx Stated complaint: abnormal EKG Time Seen by Provider: 11/17/23 15:17 History of Present Illness HPI narrative: Patient is a 58-year-old female who presents ER with elevated heart rate. Her watch is alert her to an elevated heart rate at 130 beats per minute full last 7 days when she has been at rest. An EKG at her PCPs office showed atrial flutter so she was sent to the ER. No chest pain or chest pressure. She does feel her heart racing. She is not short of breath. Has remote history of breast cancer 10 years ago home. Patient developed cough today. Nonproductive. No hemoptysis. No pain with deep breath. No leg swelling. Related Data Home Medications Medication Instructions Recorded Confirmed cholecalciferol (vitamin D3) 125 5,000 unit PO DAILY 08/12/19 02/27/23 mcg (5,000 unit) capsule multivitamin 1 tablet PO DAILY 06/19/20 02/27/23 calcium carbonate 600 mg calcium 600 mg PO DAILY 02/21/22 02/27/23 (1,500 mg) tablet (Calcium) loratadine 10 mg tablet (Claritin) 10 mg PO DAILY PRN Allergy Symptoms 02/21/22 02/27/23 Allergies Allergy/AdvReac Type Severity Reaction Status Date / Time No Known Allergies Allergy Verified 11/17/23 15:49 Review of Systems Review of Systems: All systems reviewed & are unremarkable except as noted in HPI and below Constitutional: Constitutional: Reports no additional constitutional complaints ENT: Reports system reviewed and no additional complaints, except as documented Cardiovascular: Cardiovascular: Denies chest pain, Reports rapid heart rate, Denies radiating jaw, neck or arm pain and Denies slow heart rate Respiratory: Respiratory: Denies chest congestion, Reports cough, Reports dyspnea and Denies wheezing Gastrointestinal: Gastrointestinal: Reports no additional gastrointestinal complaints Musculoskeletal: Musculoskeletal: Reports no additional musculoskeletal complaints [facility] Past Medical History Medical History Colon polyps Depression with anxiety History of breast cancer in female (~2012) Status post left breast lumpectomy, radiation, and tamoxifen therapy. History of left breast cancer (~2012) Insomnia Seasonal allergies Vitamin D deficiency, unspecified (~2015) Surgical History Surgical History delivery delivered H/O: hysterectomy (~07/03/20) History of bunionectomy of left great toe (~09/2021) History of lumpectomy of left breast (~2012) Status post hysteroscopy (~06/2020) Family History Family History Mother Cerebrovascular accident Intracranial hemorrhage Social History Social History Social History: Surrogate decision maker: Mitchell Orozco, spouse. Code status: Full code. Smoking status: Never smoker Alcohol intake: current Drinks per week: 3 Substance use: never Substance use type: does not use Lack of Transportation: No Lack of Food: Never True Current Housing: I Have Housing Concerned About Future Housing: No Difficulty Paying Gas/Electric Bills: No Difficulty Paying for Meds: No Currently Unemployed: No Education: Bachelor's Degree Difficulty w/ Childcare or Family Care: No Living arrangements: with family Additional living arrangements comments: Resides in [place] with her . 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 Gender identity (if verbalized by the patient): Female Sexual Orientation (if Verbalized by the Patient): Straight or Heterosexual Spiritual care concerns: No Agree to blood products: Yes Exam Narrative: GENERAL: Well-appearing, well-nourished, and in no acute distress. HEAD: Normocephalic, atraumatic. ENT: Mucous membranes mo
[2023-11-17] MEDS: dilTIAZem 100 MG/100 ML 100 MG/100 ML BAG IV CONT (17:41)
--- NOTE | 2023-11-17 19:11 | PC.NURSE ---
Report given to Panda ELAINE, all questions answered
--- NOTE | 2023-11-17 20:49 | PM.IMHP ---
H&P: HPI History of Present Illness Date/Time: 11/17/23 20:49 Chief Complaint: palpitations Narrative: 58 yo F with PMH of anxiety who presented to the ER on account palpitation. Noted her symptoms has been going on for about a week, and she presented to the Er because of continue elevated HR above 120s. noted her apple watch caught her heart rate. Denies any chest pain, lightheadedness, vomiting, abd pain, diarrhea, focal weakness. However noted cough about the same duration. ER eval notable for 121, EKG showed Aflutter with RVR, CXR no acute abnormality. Patient was started on Cardizem infusion prior to admission. Review of Systems Review of Systems: All systems reviewed and negative except as noted in the history above. [facility] Past Medical History Medical History Colon polyps Depression with anxiety History of breast cancer in female (~2012) Status post left breast lumpectomy, radiation, and tamoxifen therapy. History of left breast cancer (~2012) Insomnia Seasonal allergies Vitamin D deficiency, unspecified (~2015) Surgical History Surgical History delivery delivered H/O: hysterectomy (~07/03/20) History of bunionectomy of left great toe (~09/2021) History of lumpectomy of left breast (~2012) Status post hysteroscopy (~06/2020) Family History Family History Mother Cerebrovascular accident Intracranial hemorrhage Social History Social History Social History: Surrogate decision maker: Mitchell Portereleuterio, spouse. Code status: Full code. Smoking status: Never smoker Second hand tobacco smoke exposure: No Alcohol intake: never Drinks per week: 3 Substance use: never Substance use type: does not use Do You Feel Safe in your Home?: Yes Lack of Transportation: No Lack of Food: Never True Current Housing: I Have Housing Concerned About Future Housing: No Difficulty Paying Gas/Electric Bills: No Difficulty Paying for Meds: No Currently Unemployed: No Education: Bachelor's Degree Difficulty w/ Childcare or Family Care: No Living arrangements: with family Additional living arrangements comments: Resides in [place] with her . 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 Gender identity (if verbalized by the patient): Female Sexual Orientation (if Verbalized by the Patient): Straight or Heterosexual Spiritual care concerns: No Agree to blood products: Yes Meds Home Medications and Allergies Home Medications Medication Instructions Recorded Confirmed Type cholecalciferol (vitamin D3) 125 5,000 unit PO DAILY 08/12/19 11/17/23 History mcg (5,000 unit) capsule multivitamin 1 tablet PO DAILY 06/19/20 11/17/23 History calcium carbonate 600 mg calcium 600 mg PO DAILY 02/21/22 11/17/23 History (1,500 mg) tablet (Calcium) valacyclovir 1 gram tablet 1,000 mg PO Q8H fever blister #21 02/27/23 11/17/23 Rx tabs bupropion HCl 300 mg 24 hr tablet, 300 mg PO QAM #90 tabs 09/25/23 11/17/23 Rx extended release Allergies Allergy/AdvReac Type Severity Reaction Status Date / Time No Known Allergies Allergy Verified 11/17/23 15:49 Vital Signs Vital Signs - 24 hr 11/17/23 15:01 11/17/23 15:49 11/17/23 16:23 Temperature 97.6 F Pulse Rate 60 121 H 89 Respiratory Rate 16 17 14 Blood Pressure 112/87 126/76 119/88 Pulse Oximetry 98 98 98 Oxygen Delivery Room Air 11/17/23 17:41 11/17/23 17:44 11/17/23 18:26 Temperature Pulse Rate 115 H 110 H 109 H Respiratory Rate 12 16 Blood Pressure 124/85 124/85 127/99 H Pulse Oximetry 99 100 Oxygen Delivery 11/17/23 19:16 11/17/23 19:29 11/17/23 20:20 Temperature 98.1 F Pulse Rate 103 H 126 H 133 H Respiratory Ra
--- NOTE | 2023-11-17 21:02 | ADMGEN ---
This patient, Zita Orozco, was admitted to IMU Room 206-02. @ 2030 Patient/family oriented to hospital policies and general routines including ID bracelet, bed and alarms, visiting hours, pain management, procedures, bathroom and other care routines, personal items, smoking policy, room service/diet, and visiting hours. Information on how to activate the Rapid Response Team has been discussed. Patient/Family are encouraged to report perceived risks to care and to ask questions if they do not understand what they are told or what they should do.
[2023-11-18] VITALS (24 sets, daily range): BP systolic 98–118; BP diastolic 59–74; PULSE 74–110; RESP 16–18; TEMP 36.6–37.2; O2SAT 91–98
[2023-11-18] MEDS: dilTIAZem 100 MG/100 ML 100 MG/100 ML BAG 10 MG IV CONT ×2 (00:47→11:06)
[2023-11-18 05:30] LABS: Basophils Percent Auto 0.5 % (0.2-1.2); Eosinophils Absolute Auto 0.1 K/mm3 (0-0.3); Hematocrit 41.1 % (37.0-47.0); Hemoglobin 13.5 g/dL (12.0-15.0); Immature Granulocyte Absolute 0.02 K/mm3 (0.00-0.031); Immature Granulocyte Percent A 0.2 % (0-0.5); Lymphocytes Absolute Auto 1.24 K/mm3 (0.9-3.2); Lymphocytes Percent Auto 15.3 % (18.3-44.2); Mean Corpuscular HGB Conc 32.8 g/dl (32-36); Mean Corpuscular Hemoglobin 29.7 pg (26-34); Mean Corpuscular Volume 90.3 fl (80-100); Monocytes Absolute Auto 0.8 K/mm3 (0.1-0.6); Monocytes Percent Auto 10.2 % (2.6-8.5); Neutrophils Absolute Auto 5.9 K/mm3 (1.3-6.7); Neutrophils Percent Auto 72.8 % (45.5-73.1); Platelet Count Result 190 k/mm3 (150-375); Red Blood Count 4.55 M/mm3 (4.2-5.4); Red Cell Distribution Width 13.9 % (11.5-14.5); White Blood Count 8.1 K/mm3 (4.5-10.0)
[2023-11-18 05:38] LABS: Alanine Aminotransferase 23 U/L (6-35); Albumin Level 4.1 g/dL (3.5-5.1); Alkaline Phosphatase 83 U/L (38-126); Anion Gap 6 mmol/L (8-16); Aspartate Amino Transferase 23 U/L (14-36); Bilirubin,Total 0.7 mg/dL (0.2-1.3); Blood Urea Nitrogen 16 mg/dL (7-17); Calcium 9.2 mg/dL (8.4-10.2); Carbon Dioxide 26 mmol/L (22-30); Chloride 106 mmol/L (98-107); Estimated CRCL calculation 66 ml/min; Estimated Glomerular Filt Rate > 60; Glucose 103 mg/dL (65-110); Magnesium 2.1 mg/dL (1.6-2.3); Sodium 138 mmol/L (137-145)
[2023-11-18 05:41] LABS: Lactic Acid Reflex 0.7 mmol/L (0.7-2.0)
--- NOTE | 2023-11-18 06:00 | ECHO_ITS ---
Patient Info Name: Zita Orozco Age: 58 years : 1965 Gender: Female Ht: 67 in Wt: 173 lbs BSA: 1.94 m2 HR: 92 bpm BP: 108 / 72 mmHg Heart Rhythm: Atrial Flutter Technical Quality: Fair Exam Date: 11/18/2023 2:55 PM Exam Location: Echo Lab Patient Status: Outpatient Admit Date: 11/17/2023 Staff Ordering Physician: Fritz Mcdonald MD Steel Tier: Adeola De La Cruz RDCS Attending Provider: Nguyễn Hernandez MD Referring Physician: Harry WOODRUFF; Exam Type: CA echo dop color flow w con Study Info Indications - atrial flutter w/rvr Complete two-dimensional, color flow and Doppler transthoracic echocardiogram is performed with contrast to opacify the left ventricle and to improve the deliniation of the left ventricle endocardial borders. Contrast/Agitated Saline Contrast/Ag. Saline: Definity Amount: 2.00 ml Administered By: Adeola De La Cruz RDCS Existing IV Access: Yes IV Access Condition: patent with no signs of infiltration Summary 1. Left ventricular chamber dimension is normal. 2. Left ventricular systolic function is normal, estimated at 65-70%. 3. Right ventricular systolic function is normal. 4. No significant valvular disease. Left Ventricle Left ventricular chamber dimension is normal. Left ventricular systolic function is normal, estimated at 65-70%. There is no increased left ventricular wall thickness. Right Ventricle Right ventricular chamber dimension is normal. Right ventricular systolic function is normal. Left Atria Left atrial chamber dimension is normal. Right Atria Right atrial chamber dimension is normal. Atrial Septum Intact interatrial septum visualized by color flow imaging. Aortic Valve The aortic valve is trileaflet. There is no aortic valve stenosis. There is no aortic valve regurgitation. Pulmonic Valve The pulmonic valve is not well visualized. Mitral Valve There is trace mitral valve regurgitation. Tricuspid Valve There is trace tricuspid valve regurgitation. Pericardium/Pleural There is no pericardial effusion. Inferior Vena Cava Normal inferior vena cava with >50% collapse upon inspiration consistent with normal right atrial pressure, 3 mmHg. Aorta The aortic root size at the sinus of Valsalva is normal. Left Ventricular Outflow Tract Name Value Normal LVOT 2D LVOT Diameter 1.96 cm LVOT Doppler LVOT Peak Gradient 5 mmHg LVOT Mean Gradient 2 mmHg LVOT VTI 16.03 cm LVOT VTI/AV VTI Ratio 0.82 LVOT Stroke Volume 48.35 ml LVOT CO 4.89 l/min LVOT CI 2.52 L/min/m2 Pulmonic Valve Name Value Normal PV Doppler PV Peak Gradient 3 mmHg Mitral Valve
[2023-11-18] MEDS: ENOXAPARIN 40 MG/0.4 ML SYRINGE SUB-Q (10:07)
[2023-11-18] MEDS: buPROPion HCL XL (24 HR) 150 MG TABCR 300 MG PO (10:07)
--- NOTE | 2023-11-18 12:04 | PM.CNCAR ---
Assessment and Plan Assessment and plan (1) Atrial flutter with rapid ventricular response: Code(s): I48.92 - Unspecified atrial flutter Status: Acute Assessment and Plan: New diagnosis of atrial flutter. TSH level is normal. Will stop Diltiazem drip and start PO Diltiazem. If unable to rate control, then would need ANNE-guided DCCV. If she did undergo ANNE-guided DCCV, then would need to be on anticoagulation for 1 month following cardioversion. Otherwise, does not need long-term anticoagulation. Outpatient referral to Electrophysiology to evaluate for ablation. Outpatient sleep study to evaluate for LOYD. Recommendations and plan discussed with Dr. Bennett. History of Present Illness History of Present Illness Consult date/time: 11/18/23 12:04 Requesting physician: Fritz Mcdoanld MD Consult reason: Other (Atrial flutter) Reason For Visit: Aflutter with RVR Narrative: This is a 58 year old female with history of breast cancer and anxiety who presented with palpitations. Patient has been having palpitations for at least the past week, but noticed it more on Friday. She was at PCP's office yesterday and EKG showed atrial flutter, therefore, patient was sent to ED. Patient was in atrial flutter with RVR in the ED, and started on Diltiazem drip. She is currently rate controlled on Diltiazem drip and otherwise feeling well. Review of Systems Review of Systems: All systems reviewed & are unremarkable except as noted in HPI and below (HPI) PMFSH Past Medical History Medical History Colon polyps Depression with anxiety History of breast cancer in female (~2012) Status post left breast lumpectomy, radiation, and tamoxifen therapy. History of left breast cancer (~2012) Insomnia Seasonal allergies Vitamin D deficiency, unspecified (~2015) Surgical History Surgical History delivery delivered H/O: hysterectomy (~07/03/20) History of bunionectomy of left great toe (~09/2021) History of lumpectomy of left breast (~2012) Status post hysteroscopy (~06/2020) Family History Family History Mother Cerebrovascular accident Intracranial hemorrhage Social History Social History Social History: Surrogate decision maker: Mitchell Orozco, spouse. Code status: Full code. Smoking status: Never smoker Second hand tobacco smoke exposure: No Alcohol intake: never Drinks per week: 3 Substance use: never Substance use type: does not use Do You Feel Safe in your Home?: Yes Lack of Transportation: No Lack of Food: Never True Current Housing: I Have Housing Concerned About Future Housing: No Difficulty Paying Gas/Electric Bills: No Difficulty Paying for Meds: No Currently Unemployed: No Education: Bachelor's Degree Difficulty w/ Childcare or Family Care: No Living arrangements: with family Additional living arrangements comments: Resides in [place] with her . 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 Gender identity (if verbalized by the patient): Female Sexual Orientation (if Verbalized by the Patient): Straight or Heterosexual Spiritual care concerns: No Agree to blood products: Yes Meds Home Medications and Allergies Home Medications Medication Instructions Recorded Confirmed Type cholecalciferol (vitamin D3) 125 5,000 unit PO DAILY 08/12/19 11/17/23 History mcg (5,000 unit) capsule multivitamin 1 tablet PO DAILY 06/19/20 11/17/23 History calcium carbonate 600 mg calcium 600 mg PO DAILY 02/21/22 11/17/23 History (1,500 mg) tablet (Calcium) valacyclovir 1 gram tablet 1,000 mg PO Q8H fever blister #21 02/27/23 11/17/23 Rx tabs bupropion HCl 300 mg 24 hr tablet, 300 mg PO QAM
[2023-11-18] MEDS: dilTIAZem HCL CD 180 MG CAP.24HR PO (12:42)
[2023-11-18] MEDS: PERFLUTREN LIPID MICROSPHERES 1.5 ML VIAL DILUTED TO 10 ML TOTAL VOLUME IV PUSH (14:30)
--- NOTE | 2023-11-18 17:02 | IVDEFINITY ---
Prior to administration of IV Definity the patient was educated on the risks and benefits of the imaging enhancing agent including potential adverse side effects. The patient verbalized understanding. Allergies were verified. No exclusion criteria were identified and at least one of the following inclusion criteria were met: 1) physician request, 2) patient technically difficult to image (per the [place] [employer] guidelines of two or more segments not discernable within the apical view), or 3) questionable left ventricular function. ?
--- NOTE | 2023-11-18 17:53 | PM.IMPN ---
Progress Note: A&P Assessment and Plan (1) Atrial flutter with rapid ventricular response: Code(s): I48.92 - Unspecified atrial flutter Status: Acute Assessment and Plan: Patient presents with palpitations and found to have new onset AFlutter. Noted by Apple watch for past 7 days. Also with body aches, fatigue and cough. Started on IV Diltiazem TSH normal. Mg 2.1 and K 3.8. Troponin negative. BNP 979 but felt related to the RVR. CXR clear. ECHO pending [id number] (gender) so no anticoagulation started Cardiology consulted from the ER and appreciate their input. Patient changed to oral diltiazem. Possibly home tomorrow if rate remains stable with plans for OP EP referral and for OP sleep study. NPO at [place] for possible cardioversion in am if rate poorly controlled. Check apnea link (2) Depression with anxiety: Code(s): F41.8 - Other specified anxiety disorders Status: Chronic Assessment and Plan: Mood stable. Continue home Wellbutrin (3) Cough: Code(s): R05 - Cough Status: Resolved Assessment and Plan: CXR clear. Cough could be viral or allergy related. Consider also GERD or asthma. Add mucinex. Defer to PCP for further evaluation. Plan DVT prophylaxis - Lovenox Code status - full Subjective Date/time seen: 11/18/23 17:53 Interval history: 58yo female with anxiety here for palpitations. Slept well last night. Has a cough productive of clear sputum. Complains of headache. No fevers but dd have chills prior to admission. Denies excessive caffeine use, alcohol abuse or drug use. No family hx of early heart disease. Exam Narrative: AF 98.1 115/66 83 18 98% ra Gen - NARD Chest - CTA bilaterally, nml RR CV - irregularly irregular. Tele showing AFlutter Abd - Soft, NT/ND, Positive BS Ext - No pedal edema Psych - Nml mood and affect Skin - Warm and dry Objective Data Vital Signs Vital Signs: Vital Signs - 24 hr 11/17/23 18:26 11/17/23 19:16 11/17/23 19:29 Temperature 98.1 F Pulse Rate 109 H 103 H 126 H Respiratory Rate 16 12 Blood Pressure 127/99 H 131/94 H Pulse Oximetry 100 96 Oxygen Delivery 11/17/23 20:20 11/17/23 20:23 11/17/23 20:30 Temperature 98.2 F Pulse Rate 133 H 132 H 110 H Respiratory Rate 20 16 Blood Pressure 132/90 132/90 99/56 L Pulse Oximetry 98 97 Oxygen Delivery 11/17/23 22:00 11/18/23 00:14 11/18/23 00:00 Temperature 98.2 F Pulse Rate 82 83 83 Respiratory Rate 16 Blood Pressure 98/60 L Pulse Oximetry 96 Oxygen Delivery 11/18/23 00:47 11/18/23 02:00 11/18/23 05:18 Temperature 98.1 F Pulse Rate 88 83 92 Respiratory Rate 16 Blood Pressure 108/72 Pulse Oximetry 95 Oxygen Delivery 11/18/23 04:00 11/18/23 06:00 11/18/23 07:19 Temperature 98.9 F Pulse Rate 74 80 85 Respiratory Rate 18 Blood Pressure 100/59 L Pulse Oximetry 96 Oxygen Delivery 11/18/23 08:58 11/18/23 10:47 11/18/23 11:06 Temperature Pulse Rate 90 90 Respiratory Rate Blood Pressure Pulse Oximetry 96 Oxygen Delivery Room Air 11/18/23 08:00 11/18/23 08:00 11/18/23 11:34 Temperature 98.6 F Pulse Rate 82 82 106 H Respiratory Rate 18 18 Blood Pressure 110/62 Pulse Oximetry 96 97 Oxygen Delivery Room Air 11/18/23 15:40 Temperature 98.1 F Pulse Rate 83 Respiratory Rate 18 Blood Pressure 115/66 Pulse Oximetry 98 Oxygen Delivery Intake/Output Intake/Output: Intake & Output 11/15/23 11/16/23 11/17/23 11/18/23 23:59 23:59 23:59 23:59 Intake Total 220 Output Total 0 Balance 220 Meds/Results Medications: Active Medications Generic Name Dose Route Start Last Admin Trade Name Freq PRN Reason Stop Dose Admin Acetaminophen 650 mg 11/17/23 17:32 Acetaminophen 325 Mg Tablet PO Q4H PRN Pain (1-3), Fever OR HEADACHE Hydrocodone Bitart/Acetaminophen 1 tab 11/17/23 17:32
[2023-11-18] MEDS: ACETAMINOPHEN 325 MG TABLET 650 MG PO (18:01)
[2023-11-18 20:42] LABS: D Dimer < 0.27 ug/mL (<0.48)
[2023-11-18] MEDS: guaiFENesin 12 HR 600 MG TABCR PO (21:25)
[2023-11-19] VITALS (19 sets, daily range): BP systolic 105–132; BP diastolic 65–90; PULSE 80–155; RESP 11–31; TEMP 36.6–36.8; O2SAT 91–98
--- NOTE | 2023-11-19 | ECG_ITS ---
Measurements Intervals [place] Rate: 87 P: 64 RI: 168 QRS: 63 QRSD: 86 T: 41 QT: 356 QTc: 431 Interpretive Statements SINUS RHYTHM LEFT ATRIAL ENLARGEMENT [-0.15mV P WAVE IN V1/V2] BORDERLINE ECG COMPARED TO ECG 11/17/2023 15:09:28 SINUS RHYTHM NOW PRESENT Electronically Signed On 11-19-2023 16:26:00 [employer] by Westley Sow M.D.
--- NOTE | 2023-11-19 07:46 | PCRCNOTE ---
Apnea link to be done this evening. All apnea link monitors were already in use on 11/18/23.
[2023-11-19] MEDS: ACETAMINOPHEN 325 MG TABLET 650 MG PO (08:42)
[2023-11-19] MEDS: ENOXAPARIN 40 MG/0.4 ML SYRINGE SUB-Q (08:43)
[2023-11-19] MEDS: buPROPion HCL XL (24 HR) 150 MG TABCR 300 MG PO (08:43)
[2023-11-19] MEDS: dilTIAZem HCL CD 180 MG CAP.24HR PO (08:44)
[2023-11-19] MEDS: guaiFENesin 12 HR 600 MG TABCR PO (08:44)
[2023-11-19 09:38] LABS: Influenza A QL RT-PCR Negative (Negative); Influenza B QL RT-PCR Negative (Negative); RSV RNA, RT-PCR Positive (Negative); SARS-CoV-2 RNA PCR Negative (Negative)
--- NOTE | 2023-11-19 10:43 | WPDMODSED ---
Moderate Sedation Note-Pt Data Patient Data Diagnosis: Atrial flutter with RVR Present Complaint: Atrial flutter with RVR Procedure to be performed/Plan: ANNE guided DCCV Allergies Allergy/AdvReac Type Severity Reaction Status Date / Time No Known Allergies Allergy Verified 11/17/23 15:49 Home Medications Medication Instructions Recorded Confirmed Type cholecalciferol (vitamin D3) 125 5,000 unit PO DAILY 08/12/19 11/17/23 History mcg (5,000 unit) capsule multivitamin 1 tablet PO DAILY 06/19/20 11/17/23 History calcium carbonate 600 mg calcium 600 mg PO DAILY 02/21/22 11/17/23 History (1,500 mg) tablet (Calcium) valacyclovir 1 gram tablet 1,000 mg PO Q8H fever blister #21 02/27/23 11/17/23 Rx tabs bupropion HCl 300 mg 24 hr tablet, 300 mg PO QAM #90 tabs 09/25/23 11/17/23 Rx extended release Current Medications: Active Medications Acetaminophen (Acetaminophen 325 Mg Tablet) 650 mg PO Q4H PRN PRN Reason: Pain (1-3), Fever OR HEADACHE Last Admin: 11/19/23 08:42 Dose: 650 mg Hydrocodone Bitart/Acetaminophen (Hydrocodone/Acetaminophen (*Crx) 5-325 Mg Tablet) 1 tab PO Q4H PRN PRN Reason: Pain Rated 4-6 Apixaban (Apixaban 5 Mg Tablet) 5 mg PO Q12HR [facility] Bupropion HCl (Bupropion Hcl Xl (24 Hr) 150 Mg Tabcr) 300 mg PO QAM [facility] Last Admin: 11/19/23 08:43 Dose: 300 mg Diltiazem HCl (Diltiazem Hcl Cd 180 Mg Cap.24hr) 180 mg PO QAM [facility] Last Admin: 11/19/23 08:44 Dose: 180 mg Enoxaparin Sodium (Enoxaparin 40 Mg/0.4 Ml Syringe) 40 mg SUB-Q DAILY [facility] Last Admin: 11/19/23 08:43 Dose: 40 mg Guaifenesin (Guaifenesin 12 Hr 600 Mg Tabcr) 600 mg PO Q12HR [facility] Last Admin: 11/19/23 08:44 Dose: 600 mg Miscellaneous Information (Apixaban Started. Stop Lovenox?) 1 each XX CLARIFY [facility] Stop: 12/19/23 00:00 Ondansetron HCl (Ondansetron Inj 4 Mg/2 Ml Vial) 4 mg IV PUSH Q4H PRN PRN Reason: Nausea Sedation/Anesthesia: No previous sedation/anesthesia problems (including family history). [facility] Past Medical History Medical History Colon polyps Depression with anxiety History of breast cancer in female (~2012) Status post left breast lumpectomy, radiation, and tamoxifen therapy. History of left breast cancer (~2012) Insomnia Seasonal allergies Vitamin D deficiency, unspecified (~2015) Surgical History Surgical History delivery delivered H/O: hysterectomy (~07/03/20) History of bunionectomy of left great toe (~09/2021) History of lumpectomy of left breast (~2012) Status post hysteroscopy (~06/2020) Family History Family History Mother Cerebrovascular accident Intracranial hemorrhage Social History Social History Social History: Surrogate decision maker: Mitchell Portert, spouse. Code status: Full code. Smoking status: Never smoker Second hand tobacco smoke exposure: No Alcohol intake: never Drinks per week: 3 Substance use: never Substance use type: does not use Do You Feel Safe in your Home?: Yes Lack of Transportation: No Lack of Food: Never True Current Housing: I Have Housing Concerned About Future Housing: No Difficulty Paying Gas/Electric Bills: No Difficulty Paying for Meds: No Currently Unemployed: No Education: Bachelor's Degree Difficulty w/ Childcare or Family Care: No Living arrangements: with family Additional living arrangements comments: Resides in [place] with her . 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 Gender identity (if verbalized by the patient): Female Sexual Orientation (if Verbalized by the Patient): Straight or Heterosexual Spiritual care concerns: No Agree to blood products: Yes Mod Sed Physical Exam Physical Exam Pre Procedu
--- NOTE | 2023-11-19 10:45 | P.PCNTEECA_ITS ---
ANNE with Cardioversion Date of procedure: 11/19/23 Procedure Type: Date of Procedure: 11/19/2023 Brief History Of Present Illness: Patient is a pleasant 58 year old female who is referred for ANNE guided DCCV for atrial flutter with RVR. Indications: Atrial flutter with RVR. Procedure In Detail: After verbal and written informed consent was obtained, the patient risks, benefits, and alternatives explained in detail. The patient agreed to proceed with the plan of care as outlined above.?The patient was evaluated at bedside in [facility].?The posterior oropharynx, neck, and jaw angle all within normal limits on examination. Lungs were clear to auscultation. See pre-sedation note for further details. The patient was then placed in the appropriate 30 to 45 degree angle supine position at a slight left lateral decubitus position.?Patient was monitored throughout the study with telemetry, oxygen saturation, end-tidal CO2 monitoring, blood pressure, heart rate, and respirations.? The posterior hypopharynx was then locally anesthetized using repeated administration of Hurricaine spray as well as gargled viscous lidocaine.? After local anesthetic of the posterior hypopharynx was achieved and the oral bite block placed, moderate sedation was administered.? After confirmation of adequate moderate sedation, the transesophageal echocardiogram probe was advanced through the oral bite block into the posterior hypopharynx and into the esophagus easily and without complication.? Multiple, multiplanar echocardiographic images were obtained in multiple standard re- projections.? At the conclusion of the study, the transesophageal echocardiogram probe was removed easily and without complication.? The patient tolerated the procedure well without difficulty.? Moderate Sedation/Anesthesia administration: Patient reports no prior problems with sedation/anesthesia. Please see pre- sedation noted for physical examination documentation. As noted above, after adequate local anesthesia of the posterior hypopharynx was achieved, a total of?3mg intravenous Versed and a total of 75mcg intravenous Fentanyl in multiple divided doses was administered for moderate sedation. Propofol 20mg IV was administered prior to cardioversion. Sedation start time was 10:22 and end time was 10:36 for a total intra-service/procedure face-face time of?14 minutes.? Versed and Fentanyl was administered by a qualified/certified observer Maryann Alcazar RN under my supervision and Propofol was administered by me with intra- procedure [id number] observation and management throughout the entirety of the procedure.? There were no other issues or complications and patient tolerated the procedure well. See post-anesthesia documentation. FINDINGS: LEFT ATRIAL APPENDAGE: Anatomically normal structure with prominent pectinate muscles without thrombus or vegetation identified. ? CARDIOVERSION: Defibrillator pads were placed in an anteroposterior position. Propofol 20mg IV was administered. Once patient was adequately sedated, synchronized electrical cardioversion was performed with 1 shock at 200 joules, with successful restora tion of sinus rhythm. Complications: None This dictation may have been done utilizing a voice recognition system.? Attempts have been made to correct errors. However, there may be uncorrected grammatical, spelling, and recognition errors present.
[2023-11-19] MEDS: APIXABAN 5 MG TABLET PO (10:58)
--- NOTE | 2023-11-19 11:00 | PM.PNCARD ---
Progress Note: A&P Assessment and Plan (1) Atrial flutter with rapid ventricular response: Code(s): I48.92 - Unspecified atrial flutter Status: Acute Assessment and Plan: New diagnosis of atrial flutter. TSH level is normal. Tested positive for RSV, which was likely trigger for atrial flutter. Stopped the Diltiazem drip and started PO Diltiazem, however, still with RVR. Therefore, ANNE-guided DCCV done this morning. Restored sinus rhythm with 1 shock at 200 joules. Will need to be on anticoagulation for 1 month following cardioversion. Started Eliquis 5mg BID. Does not need long-term anticoagulation given [id number] of 0. Outpatient referral to Electrophysiology to evaluate for ablation. Outpatient sleep study to evaluate for LOYD. Okay to discharge home later today from my standpoint. Recommendations and plan discussed with Dr. Hui. Subjective Date/time seen: 11/19/23 11:00 Interval history: Reason for visit: Atrial flutter with RVR HPI: This is a 58 year old female with history of breast cancer and anxiety who presented with palpitations. Patient has been having palpitations for at least the past week, but noticed it more on Friday. She was at PCP's office yesterday and EKG showed atrial flutter, therefore, patient was sent to ED. Patient was in atrial flutter with RVR in the ED, and started on Diltiazem drip. She is currently rate controlled on Diltiazem drip and otherwise feeling well. Date of service 11/19: Yesterday while still on Diltiazem drip, she had RVR with minimal exertion. Overnight, had episodes of RVR with heart rates up to the 150s. Tested positive for RSV. Exam Const: General: comfortable and no acute distress HENMT: Mouth: Yes moist mucous membranes Eyes: General: appearance normal, both eyes and all related structures Sclera: sclerae normal Resp: Effort & Inspection: normal respiratory effort Cardio: Rate: tachycardic Rhythm: regular rhythm Skin: General skin exam: normal color Neuro: Speech: normal speech Psych: Mental Status: mental status grossly normal Affect: normal affect Objective Data Vital Signs Vital Signs: Vital Signs - 24 hr 11/18/23 11:06 11/18/23 11:34 11/18/23 15:40 Temperature 37.0 C 36.7 C Pulse Rate 90 106 H 83 Respiratory Rate 18 18 Blood Pressure 110/62 115/66 Pulse Oximetry 97 98 Oxygen Delivery Oxygen Flow Rate 11/18/23 12:00 11/18/23 12:00 11/18/23 16:00 Temperature Pulse Rate 83 83 110 H Respiratory Rate 18 Blood Pressure Pulse Oximetry 98 Oxygen Delivery Room Air Oxygen Flow Rate 11/18/23 16:00 11/18/23 18:00 11/18/23 14:00 Temperature Pulse Rate 83 104 H 105 H Respiratory Rate 18 Blood Pressure Pulse Oximetry 98 Oxygen Delivery Room Air Oxygen Flow Rate 11/18/23 20:48 11/18/23 21:30 11/18/23 20:00 Temperature 36.6 C Pulse Rate 102 H 102 H 82 Respiratory Rate 18 18 Blood Pressure 109/61 Pulse Oximetry 98 98 Oxygen Delivery Room Air Oxygen Flow Rate 11/18/23 22:00 11/18/23 23:59 11/19/23 00:00 Temperature 36.7 C Pulse Rate 84 109 H 84 Respiratory Rate 18 Blood Pressure 118/74 Pulse Oximetry 91 Oxygen Delivery Oxygen Flow Rate 11/19/23 00:00 11/19/23 02:00 11/19/23 04:00 Temperature Pulse Rate 84 80 80 Respiratory Rate 18 18 Blood Pressure Pulse Oximetry 91 91 Oxygen Delivery Room Air Room Air Oxygen Flow Rate 11/19/23 04:00 11/19/23 05:45 11/19/23 06:00 Temperature 36.8 C Pulse Rate 81 109 H 110 H Respiratory Rate 18 Blood Pressure 117/79 Pulse Oximetry 95 Oxygen Delivery Oxygen Flow Rate 11/19/23 07:23 11/19/23 10:05 11/19/23 10:20 Temperature 36.6 C Pulse Rate 114 H 129 H 111 H Respiratory Rate 18 31 H 14 Blood Pressure 114/77 114/81 110/88 Pulse Oximetry 96 97 98 Oxygen Delivery Room Air Nasal Cannula Oxygen Flow Rate 2 11/19/23 10:25 11/19/23 10:35 11/19/23
--- NOTE | 2023-11-19 15:45 | PM.DS ---
DS: Admitting Diagnosis Discharge Date November 19, 2023 Admitting Diagnosis Palpitations DS: Discharge Diagnosis Discharge Diagnosis (1) Atrial flutter with rapid ventricular response: Code(s): I48.92 - Unspecified atrial flutter Status: Acute DS: Summary Hospital Course Hospital Course: This is a 58-year-old female with a history of depression and anxiety, vitamin-D deficiency who presents with palpitations. She noticed her symptoms going on for about a week and her Apple watch had been reporting this to a heart rate above the 120s. In the emergency department at [facility] EKG demonstrated atrial flutter with RVR. The patient was started on Cardizem drip. She was transitioned to diltiazem p.o. 180 mg q.a.m. however on 11/19 the patient's RVR persisted. On 11/19 underwent ANNE guided DCCV which restored sinus rhythm with 1 shock at 200 joules. The patient remained in sinus rhythm 4 hours after the procedure and will be discharged in stable condition on 11/19 with 1 month of Eliquis 5 mg b.i.d.. Diltiazem 180 mg p.o. q.a.m. has also been prescribed which she tolerated. The patient would have outpatient follow-up with Cardiology and eventually referred to electrophysiology for possible ablation. The patient should have a sleep study set up by her PCP which she understood. She was also in understanding and agreement with the plan to follow-up with her PCP within a week to follow-up on medications and her comorbidities and then Cardiology for her heart issues. Of note, the patient complained of cough for about a week as well to which a COVID flu and RSV PCR via nasopharyngeal swab was ordered. RSV was positive. This may have spurred her atrial flutter with RVR. Otherwise, there were no complications related to the RSV. She is advised to seek emergency department treatment if she develops further symptoms of RSV. Time Spent with Patient Time attestation: Total time spent providing and/or coordinating discharge services: Exam Const: General: cooperative and no acute distress Resp: Effort & Inspection: normal respiratory effort Auscultation: clear to auscultation bilaterally Cardio: Rate: regular rate Rhythm: regular rhythm Heart sounds: S1 normal heart sound present and S2 normal heart sound present GI: GI Palp: No abdominal tenderness Auscultation: normal bowel sounds DS: Data Data Completed and Pending Labs on day of discharge: Labs from last 24 hours 11/19/23 11/18/23 08:53 20:13 D-Dimer < 0.27 Influenza A (RT-PCR) Negative Influenza B (RT-PCR) Negative RSV (RT-PCR) Positive A SARS-CoV-2 RNA (RT-PCR) Negative Discharge Plan Discharge Attending physician on discharge: Anastasia Deshpande Consulting providers: Glynn He Discharging Clinician: Anastasia Deshpande Patient Disposition: Home, Self-Care Activity: january shower Diet: heart healthy Patient Instructions: Atrial Flutter (GEN), RSV (Respiratory Syncytial Virus) Infection (GEN) Stand Alone Forms: General Discharge Information Follow-up/Referrals: Carolyn Childers APN-C [Advanced Practice Nurse] - (12/17/23 at 1:00 Arrive at 12:45) Rodolfo Gagnon MD [Primary Care Provider] - 1 Week Discharge Medications: New Eliquis 5 mg Tablet 5 mg PO Q12HR Qty: 60 0RF diltiazem HCl 180 mg Capsule,Ext.Rel 24h Degradable 180 mg PO QAM Qty: 90 3RF Continued cholecalciferol (vitamin D3) 5,000 unit capsule 5,000 unit PO DAILY calcium carbonate [Calcium 600] 600 mg calcium (1,500 mg) tablet 600 mg PO DAILY multivitamin Tablet 1 tablet PO DAILY bupropion HCl 300 mg tablet extended release 24 hr 300 mg PO QAM Qty: 90 1RF Discontinued valacyclovir 1 gram tablet 1,000 mg PO Q8H Qty: 21 0RF Date of admission: 11/17/23 17:33 Primary Care Provider: Rodolfo Gagnon Admitting Provider: Ngyuễn Hernandez Attending physician on admission: Nguyễn Hernandez
== END 2023-11-19 16:26 | disposition home or self-care (01) ==
LOC: ANHED 18:06 → ANHIMU 20:39
PROVIDERS: Internal Medicine; Admitting Provider Internal Medicine; Emergency Provider Emergency Medicine; PCP Family Medicine; Visit Provider General Practice
PROC: (CPT 93312; principal; 2023-11-19 10:00)
PROC: 5A2204Z Restoration of Cardiac Rhythm, Single (ICD-10-PCS; 2023-11-19 10:00)
DX: I48.92 Unspecified atrial flutter (principal); R05.9 Cough, unspecified; F41.8 Other specified anxiety disorders; E55.9 Vitamin D deficiency, unspecified; J30.2 Other seasonal allergic rhinitis; Z20.822 Contact with and (suspected) exposure to COVID-19; F10.90 Alcohol use, unspecified, uncomplicated; Z79.899 Other long term (current) drug therapy
CPT/HCPCS: 36415; 71046; 80053; 83605; 83735; 83880; 84443; 84484; 85025; 85380; 87637; 92960; 93005; 93312; 93320; 93325; 96365; 96366; 96372; 96375; 96376; 99285; A9270; C8929; G0378; J1650; J2250; J2704; J3010; J7040; Q9957

== ENCOUNTER 2024-07-14 14:53 | Outpatient (CLI) | payer OTHER, SELFPAY ==
[2024-07-14 16:24] LABS: Influenza A QL RT-PCR Negative (Negative); Influenza B QL RT-PCR Negative (Negative); RSV RNA, RT-PCR Negative (Negative); SARS-CoV-2 RNA PCR Negative (Negative)
== END 2024-07-14 14:54 | disposition home or self-care (01) ==
LOC: ANHLAB 14:54
PROVIDERS: PCP Nurse Practitioner Family; Visit Provider Nurse Practitioner Family
DX: R68.89 Other general symptoms and signs (principal); Z20.822 Contact with and (suspected) exposure to COVID-19
CPT/HCPCS: 87637

== ENCOUNTER 2025-08-22 09:53 | Outpatient (CLI) | payer OTHER, SELFPAY ==
--- NOTE | ~2025-08-22 | DEXA_ITS ---
Bone Density Report Name: NELSON ESPINAL Age: 60 Sex: Female Ethnicity: White Date of : 1965 Indication: postmenopausal; screening for osteoporosis; cancer; hysterectomy; Referring Provider: ANTONIO FLORES Study: Bone densitometry was performed. Exam Date: August 22, 2025 Accession number: [id number] Bone Density: Region BMD T-score Z-score Classification AP Spine(L1-L4) 1.105 0.5 1.9 Normal Femoral Neck (Left) 0.778 -0.6 0.6 Normal Total Hip (Left) 0.857 -0.7 0.2 Normal Femoral Neck (Right) 0.757 -0.8 0.4 Normal Total Hip (Right) 0.854 -0.7 0.2 Normal Total Hip Mean 0.855 -0.7 0.2 Normal World Health Organization criteria for BMD impression classify patients as: Normal (T-score at or above -1.0), Osteopenia (T-score between -1.0 and -2.5), or Osteoporosis (T-score at or below -2.5). 10-year Fracture Risk: FRAX not reported because: All T-scores for Spine Total, Hip Total, Femoral Neck at or above -1.0 Previous Exams: -- Region Exam Age BMD T-score BMD Change BMD Change Date g/cm2 vs Baseline vs Previous -- AP Spine (L1-L4) 08/22/2025 60 1.105 0.5 -2.8%* -1.7% 04/24/2022 56 1.124 0.7 -1.1% -1.1% 10/08/2017 52 1.136 0.8 Total Hip(Left) 08/22/2025 60 0.857 -0.7 -11.2%* -4.0%* 04/24/2022 56 0.893 -0.4 -7.5%* -7.5%* 10/08/2017 52 0.966 0.2 Total Hip(Right) 08/22/2025 60 0.854 -0.7 -15.2%* -5.1%* 04/24/2022 56 0.899 -0.4 -10.7%* -10.7%* 10/08/2017 52 1.007 0.5 -- *Denotes significance at 95% confidence level, LSC for AP Spine = 0.022 g/cm2, LSC for Total Hip = 0.027 g/cm2 Clinical Information Provided by Patient: Has used the following medications: Vitamin D, Calcium Has the following medical conditions: Cancer, Hysterectomy, breast cancer Patient maximum height was 67 Menopause Age: 50 No regular weight bearing exercise Drinks caffeinated beverages Onset of menses at age 13 Number of children 2 Impression: The patient has normal bone mass. The BMD for the Total Hip(Left) decreased, changing by -4.0% since the last DXA exam. The BMD for the Total Hip(Right) decreased, changing by -5.1% since the last DXA exam. Discussion: BONE DENSITY IS ABOVE THE MINIMUM DESIRABLE LEVEL AT ALL SKELETAL SITES TESTED. This patient?s bone mineral density is above the minimum desirable level (T-score -1.0 or better) at all sites measured. The patient should follow a healthful lifestyle (good nutrition with adequate calcium and vitamin D, and appropriate weight-bearing exercise). Follow-Up: Consider repeating this study in 3 to 4 years to reassess this patient's status, or sooner if there is some new clinical indication. Reported by: POLINA on 08/22/2025 10:15:00 AM. Reviewed, dictated and finalized at location A.
== END 2025-08-22 09:54 | disposition home or self-care (01) ==
LOC: MICIMG 09:55
PROVIDERS: PCP Family Medicine; Visit Provider Obstetrics & Gynecology Gynecology
DX: Z78.0 Asymptomatic menopausal state (principal)
CPT/HCPCS: 77080